=== PATIENT | male | born 1985 | race African-American/Black ===

== ENCOUNTER 2018-06-27 05:28 | Emergency (ER) | payer SELFPAY ==
[~2018-06-27] VITALS: Ht 177.8 cm; Wt 80.0 kg
[2018-06-27 05:35] VITALS: BP 142/84
== END 2018-06-27 08:55 | disposition left against medical advice (07) ==
LOC: ER 06:06
DX: Z53.21 Procedure and treatment not carried out due to patient leaving prior to being seen by health care provider (principal)